=== PATIENT | male | born 1980 | race American Indian/Alaskan Native ===

== ENCOUNTER 2017-07-09 17:50 | Emergency (ER) | payer SELFPAY ==
[2017-07-09] MEDS ORDERED: NACL 0.9% 500 ML 500 ML IV ONE (20:41)
--- NOTE | 2017-07-09 20:41 | Emergency Department Report ---
ED Seizure HPI - General Chief Complaint: Seizure Stated Complaint: SEIZURE Time Seen by Provider: 07/09/17 20:09 Source: EMS Mode of arrival: Stretcher Limitations: Altered Mental Status - History of Present Illness Initial Comments: 36-year-old male with a past medical history seizures and developmental delay presents to the hospital status post 3 seizures. His miner operator is at the bedside and provide a history of present illness. She witnessed 2 seizures 2 minutes apart this a.m. followed by 10 minute postictal state. At 5 PM patient a third seizure. He has been compliant with his Depakote 500 mg a.m., 1000 mg daily at bedtime however he has been refusing his phenobarbital for the past 3 days. She suspects that he does not like the taste of the medication. No pain reported currently. Patient is drowsy but arousable and at baseline mental status. She reports she has been "a while since he had his last seizure". - Related Data Home Medications Medication Instructions Recorded Confirmed Last Taken Divalproex Dr [Valerie HUGGINS] 1,000 mg PO QHS 07/09/17 07/09/17 Unknown PHENobarbital 32.4 mg PO DAILY 07/09/17 07/09/17 Unknown Allergies Allergy/AdvReac Type Severity Reaction Status Date / Time No Known Allergies Allergy Unverified 07/09/17 18:05 ED Review of Systems ROS: Stated complaint: SEIZURE Other details as noted in HPI Comment: All other systems reviewed and negative Other: Constitutional: No fevers chills Eyes: No eye pain visual changes ENT: No ear pain or throat pain Neck: Denies pain Respiratory: Denies cough wheezing shortness of breath Cardiovascular: Denies chest pain, palpitations, syncope GI: Denies abdominal pain, nausea, vomiting, diarrhea : Denies dysuria Musculoskeletal: Denies back pain Skin: Denies rash, lesions, erythema Neurologic: Denies headache, numbness, weakness Psychiatric: Denies suicidal ideation, hallucinations ED Past Medical Hx - Past Medical History Hx Seizures: Yes Additional medical history: development delayed - Social History Smoking Status: Unknown if ever smoked Substance Use Type: None - Medications Home Medications: Home Medications Medication Instructions Recorded Confirmed Last Taken Type Divalproex Dr [Valerie HUGGINS] 1,000 mg PO QHS 07/09/17 07/09/17 Unknown History PHENobarbital 32.4 mg PO DAILY 07/09/17 07/09/17 Unknown History ED Physical Exam - General Limitations: Altered Mental Status - Other Other exam information: General: No limitations, patient is alert in no acute distress Head exam: Atraumatic, normocephalic Eyes exam: Normal appearance ENT: Moist mucous membrane, normal oropharynx, no tongue laceration Neck exam: Normal inspection, full range of motion, no meningismus nontender Respiratory exam: Clear to auscultation bilateral, no wheezes, rales, crackles Cardiovascular: Normal rate and rhythm, normal heart sounds Abdomen: Soft, nondistended, and nontender, with normal bowel sounds, no rebound, or guarding Extremity: Full range of motion normal inspection no deformity Back: Normal Inspection, full range of motion, no tenderness Neurologic: Drowsy but easily arousable, cranial nerves intact, no motor or sensory deficit Psychiatric: normal affect, normal mood Skin: Warm, dry, intact ED Course Vital Signs 07/09/17 07/09/17 07/09/17 17:54 19:31 20:48 Temperature 98.0 F Pulse Rate 100 H Respiratory 18 14 Rate Blood Pressure 117/79 O2 Sat by Pulse 95 98 98 Oximetry 07/09/17 07/09/17 07/09/17 20:50 21:00 22:01 Temperature Pulse Rate 72 69 65 Respiratory 18 19 14 Rate Blood Pressure 121/83 116/81 116/81 O2 Sat by Pulse 99 98 Oximetry ED Medical Decision Making - Lab Data Result diagrams: 07/09/17 21:00 07/09/17 21:00 Lab Results 07/09/17 07/09/17 07/09/17 Range/Units 20:04 21:00 21:00 WBC 8.3 (4.5-11.0) K/mm3 RBC 4.55 (3.65-5.03) M/mm3 Hgb 14.6 (11.8-15.2) gm/dl Hct 43.3 (35.5-45.6) % MCV 95 H (84-94) fl MCH 32 (28-32) pg MCHC 34 (32-34) % RDW 13.6 (13.2-15.2) % Plt Count 130 L (140-440) K/mm3 Lymph % (Auto) 12.7 L (13.4-35.0) % Hart % (Auto) 8.4 H (0.0-7.3) % Eos % (Auto) 0.1 (0.0-4.3) % Baso % (Auto) 0.1 (0.0-1.8) % Lymph # 1.1 L (1.2-5.4) K/mm3 Hart # 0.7 (0.0-0.8) K/mm3 Eos # 0.0 (0.0-0.4) K/mm3 Baso # 0.0 (0.0-0.1) K/mm3 Seg Neutrophils % 78.7 H (40.0-70.0) % Seg Neutrophils # 6.5 (1.8-7.7) K/mm3 Sodium (137-145) mmol/L Potassium (3.6-5.0) mmol/L Chloride (98-107) mmol/L Carbon Dioxide (22-30) mmol/L Anion Gap mmol/L BUN (9-20) mg/dL Creatinine (0.8-1.5) mg/dL Estimated GFR ml/min BUN/Creatinine Ratio % Glucose (75-100) mg/dL Calcium (8.4-10.2) mg/dL Magnesium (1.7-2.3) mg/dL Valproic Acid 39.2 L (50-100) ug/mL Phenobarbital 13.5 L (15.0-40.0) mg/L /08/17 Range/Units 21:00 WBC (4.5-11.0) K/mm3 RBC (3.65-5.03) M/mm3 Hgb (11.8-15.2) gm/dl Hct (35.5-45.6) % MCV (84-94) fl MCH (28-32) pg MCHC (32-34) % RDW (13.2-15.2) % Plt Count (140-440) K/mm3 Lymph % (Auto) (13.4-35.0) % Hart % (Auto) (0.0-7.3) % Eos % (Auto) (0.0-4.3) % Baso % (Auto) (0.0-1.8) % Lymph # (1.2-5.4) K/mm3 Hart # (0.0-0.8) K/mm3 Eos # (0.0-0.4) K/mm3 Baso # (0.0-0.1) K/mm3 Seg Neutrophils % (40.0-70.0) % Seg Neutrophils # (1.8-7.7) K/mm3 Sodium 139 (137-145) mmol/L Potassium 4.0 (3.6-5.0) mmol/L Chloride 102.3 (98-107) mmol/L Carbon Dioxide 24 (22-30) mmol/L Anion Gap 17 mmol/L BUN 18 (9-20) mg/dL Creatinine 0.8 (0.8-1.5) mg/dL Estimated GFR > 60 ml/min BUN/Creatinine Ratio 22.50 % Glucose 74 L (75-100) mg/dL Calcium 9.0 (8.4-10.2) mg/dL Magnesium 2.40 H (1.7-2.3) mg/dL Valproic Acid (50-100) ug/mL Phenobarbital (15.0-40.0) mg/L - Medical Decision Making Patient's Depakote level and phenobarb level were served therapeutic. Patient received IV phenobarbital and by mouth Depakote in the ED. No further seizure activity noted. Patient's status at discharge. - Differential Diagnosis breakthrough seizure, medication noncompliance, electrolyte abnormality Critical Care Time: No Critical care attestation.: If time is entered above; I have spent that time in minutes in the direct care of this critically ill patient, excluding procedure time. ED Disposition Clinical Impression: Seizure, Noncompliance with medication regimen, History of developmental delay Disposition: DC-01 TO HOME OR SELFCARE Is pt being admited?: No Does the pt Need Aspirin: No Condition: Stable Instructions: Recurrent Seizures Adult (ED) Additional Instructions: Follow-up with your neurologist with the neurologist provided if he do not have one. Please take medication as prescribed to prevent further seizures. Referrals: PRIMARY CARE,MD [Primary Care Provider] - 3-5 Days JASON GILMORE MD [Staff Physician] - 3-5 Days (Neurologist) Time of Disposition: 22:55
[2017-07-09 21:24] LABS: Basophils % (Auto) 0.1 % (0.0-1.8); Eosinophils % (Auto) 0.1 % (0.0-4.3); Hematocrit 43.3 % (35.5-45.6); Hemoglobin 14.6 gm/dl (11.8-15.2); Mean Corpuscular HGB Conc 34 % (32-34); Mean Corpuscular Hemoglobin 32 pg (28-32); Mean Corpuscular Volume 95 fl (84-94); Platelet Count 130 K/mm3 (140-440); Red Blood Count 4.55 M/mm3 (3.65-5.03); Red Cell Distribution Width 13.6 % (13.2-15.2); White Blood Count 8.3 K/mm3 (4.5-11.0)
[2017-07-09 21:32] LABS: Anion Gap 17 mmol/L; Blood Urea Nitrogen 18 mg/dL (9-20); Carbon Dioxide 24 mmol/L (22-30); Chloride 102.3 mmol/L (98-107); Glucose 74 mg/dL (75-100); Sodium 139 mmol/L (137-145)
[2017-07-09 23:08] VITALS: BP 125/90
== END 2017-07-09 23:08 | disposition home or self-care (01) ==
LOC: EDSEX → EDBD → ED 17:50
DX: R56.9 Unspecified convulsions (principal); Z91.14 Patient's other noncompliance with medication regimen; R62.50 Unspecified lack of expected normal physiological development in childhood
CPT/HCPCS: 36415; 80048; 80164; 80184; 83735; 85025; 96361; 96374; 99284; J2560; J7040